=== PATIENT | female | born 1995 | race African-American/Black ===

== ENCOUNTER 2020-02-07 19:39 | Emergency (ER) | payer OTHER ==
[~2020-02-07] VITALS: Ht 162.6 cm; Wt 52.6 kg
[2020-02-07 20:00] VITALS: BP 102/68
--- NOTE | 2020-02-07 20:00 | NUR ---
to ED bed 07
--- NOTE | 2020-02-07 20:15 | NUR ---
Dr. Robin at bedside assessing pt.
--- NOTE | 2020-02-07 20:15 | NUR ---
DANIEL HODGE AT BEDSIDE FOR MEDICAL EVALUATION.
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
--- NOTE | 2020-02-07 20:20 | NUR ---
Antonette bernstein in ED - 02/07/20 at 3 by CHRISM ERMD AT BEDSIDE EVALUATING PT.
[2020-02-07] MEDS: ONDANSETRON 4 MG ODT PO ONE (21:08)
[2020-02-07] MEDS: HYDROcodone/APAP 5/325 MG 1 TAB TAB PO ONE (21:08)
[2020-02-07 21:24] VITALS: BP 102/68
--- NOTE | 2020-02-07 21:24 | NUR ---
Patient discharged with v/s stable. Written and verbal after care instructions given and explained. Patient alert, oriented and verbalized understanding of instructions. Ambulatory with steady gait. All questions addressed prior to discharge. ID band removed. Patient advised to follow up with PMD. Rx of VALIUM, NORCO, IBUPROFEN given. Patient educated on indication of medication including possible reaction and side effects. Opportunity to ask questions provided and answered.
== END 2020-02-07 21:24 | disposition home or self-care (01) ==
LOC: MED 19:39
DX: S39.012A Strain of muscle, fascia and tendon of lower back, initial encounter (principal); Z85.9 Personal history of malignant neoplasm, unspecified; X58.XXXA Exposure to other specified factors, initial encounter; Y93.89 Activity, other specified; Y92.89 Other specified places as the place of occurrence of the external cause; Y99.8 Other external cause status
CPT/HCPCS: 72040; 72100; 73060; 81002; 81025; 99284; Q0162

== ENCOUNTER 2020-03-24 08:47 | Emergency (ER) | payer OTHER ==
[~2020-03-24] VITALS: Ht 160 cm; Wt 49.4 kg
[2020-03-24 08:51] VITALS: BP 108/60
[2020-03-24 09:27] VITALS: BP 108/60
== END 2020-03-24 09:27 | disposition home or self-care (01) ==
LOC: MED 08:47
DX: N93.8 Other specified abnormal uterine and vaginal bleeding (principal); C95.90 Leukemia, unspecified not having achieved remission; D57.1 Sickle-cell disease without crisis; F12.90 Cannabis use, unspecified, uncomplicated; Z88.6 Allergy status to analgesic agent
CPT/HCPCS: 81002; 81025; 99283

== ENCOUNTER 2020-12-10 16:48 | Emergency (ER) | payer OTHER ==
[~2020-12-10] VITALS: Ht 160 cm; Wt 79.4 kg
[2020-12-10 17:13] VITALS: BP 150/80
--- NOTE | 2020-12-10 17:15 | NUR ---
PT WAITING IN TENT
--- NOTE | 2020-12-10 17:44 | NUR ---
COVID SWABS COLLECTED
[2020-12-10] MEDS ORDERED: PROM118S5 PO (18:21)
[2020-12-10] MEDS ORDERED: ACET-10509 PO (18:21)
--- NOTE | 2020-12-10 18:38 | NUR ---
COVID SYMPTOMS/EXPOSURE X 1 WEEK. SYMPTOMS BEGAN 2 DAYS AGO, PT EXPERIENCING COUGH/CHEST TIGHTNESS AND MILD SOB. PMH: LEUKEMIA
[2020-12-10 19:04] VITALS: BP 150/80
--- NOTE | 2020-12-10 19:05 | NUR ---
Patient discharged with v/s stable. Written and verbal after care instructions given and explained. Patient alert, oriented and verbalized understanding of instructions. Ambulatory with steady gait. All questions addressed prior to discharge. ID band removed. Patient advised to follow up with PMD. Rx of PROMETHAZINE AND TYLENOL given. Patient educated on indication of medication including possible reaction and side effects. Opportunity to ask questions provided and answered.
== END 2020-12-10 19:05 | disposition home or self-care (01) ==
LOC: MED 16:48
DX: J06.9 Acute upper respiratory infection, unspecified (principal); Z20.822 Contact with and (suspected) exposure to COVID-19; Z88.8 Allergy status to other drugs, medicaments and biological substances
CPT/HCPCS: 71045; 87426; 99284; U0003; 29515; 99283

== ENCOUNTER 2021-01-31 16:44 | Emergency (ER) | payer OTHER ==
[~2021-01-31] VITALS: Ht 160 cm; Wt 53.5 kg
[~2021-01-31 16:44] MED LIST: ACET-10509 PO; PROM118S5 PO
[2021-01-31 16:53] VITALS: BP 108/68
--- NOTE | 2021-01-31 17:12 | NUR ---
PT AMBULATED TO BED 9
--- NOTE | 2021-01-31 17:17 | NUR ---
25 Y FEMALE C/O RIGHT FLANK PAIN X 2 DAYS. PT STATED SHE WAS STRETCHING HER BACK AND THE NEXT DAY FELT THE PAIN. DENIES ANY TRAUMA TO HER BACK. PT STATED PAIN MAINLY OCCURS WHEN SHE IS MOVING HER BACK. UPON ASSESSMENT SKIN IS INTACT, MINOR BUMP FELT ON HER R FLANK. PMH: DENIES ALLERGIES: SEE CHART
[2021-01-31] MEDS ORDERED: KETOROLAC 15 MG/ML VIAL IM ONE (17:55)
--- NOTE | 2021-01-31 18:07 | NUR ---
UA COLLECTED BEDSIDE AND HANDED TO CAR PORTER
--- NOTE | 2021-01-31 18:18 | NUR ---
PT RETURNED TO BED [address] VIA W/C
[2021-01-31 18:32] LABS: APPEARANCE,URINE CLEAR (CLEAR); BILIRUBIN,URINE NEGATIVE (NEGATIVE); BLOOD, URINE 3+ (NEGATIVE); COLOR,URINE YELLOW (YELLOW); LEUKOCYTE ESTERASE ,URINE TRACE (NEGATIVE); NITRITE, URINE NEGATIVE (NEGATIVE); UGLUCOSE NEGATIVE (NEGATIVE)
--- NOTE | 2021-01-31 18:37 | NUR ---
PT IS CURRENTLY RESTING BEDSIDE WITH EYES CLOSED AND LIGHTS ON. BED IN LOWEST POSITION WITH SIDERAIL X1 UP. PT STATED PAIN RELIEF AND VITAL SIGNS STABLE. WILL CONTINUE TO MONITOR STATUS
[2021-01-31 18:58] LABS: RBC,URINE 20-50 /HPF (0-5); TRICHOMONAS,URINE Rare /HPF (None Seen); WBC,URINE 0-5 /HPF (0-5)
[2021-01-31] MEDS ORDERED: METR500T1 PO (19:05)
[2021-01-31 19:33] VITALS: BP 116/74
--- NOTE | 2021-01-31 19:33 | NUR ---
Patient discharged with v/s stable. Written and verbal after care instructions given and explained. Patient alert, oriented and verbalized understanding of instructions. Ambulatory with steady gait. All questions addressed prior to discharge. ID band removed. Patient advised to follow up with PMD. Rx of flagyl given. Patient educated on indication of medication including possible reaction and side effects. Opportunity to ask questions provided and answered.
== END 2021-01-31 19:33 | disposition home or self-care (01) ==
LOC: MED 16:44
DX: R10.9 Unspecified abdominal pain (principal); A59.9 Trichomoniasis, unspecified; F12.90 Cannabis use, unspecified, uncomplicated; Z79.899 Other long term (current) drug therapy; Z88.8 Allergy status to other drugs, medicaments and biological substances; Z85.6 Personal history of leukemia
CPT/HCPCS: 74176; 81001; 81025; 96372; 99284; J1885

== ENCOUNTER 2021-05-16 03:32 | Emergency (ER) | payer OTHER ==
[~2021-05-16 03:32] MED LIST changes: +METR500T1 PO
--- NOTE | 2021-05-16 03:38 | NUR ---
PATIENT LEFT WITHOUT BEING SEEN BY DR. CHOWDARY . NO FURTHER CARE PROVIDED FOR PATIENT.
== END 2021-05-16 03:38 | disposition left against medical advice (07) ==
LOC: MED 03:32
DX: M79.646 Pain in unspecified finger(s) (principal); Z53.21 Procedure and treatment not carried out due to patient leaving prior to being seen by health care provider

== ENCOUNTER 2021-06-07 12:09 | Emergency (ER) | payer OTHER ==
[~2021-06-07] VITALS: Ht 160 cm; Wt 52.2 kg
[2021-06-07 12:15] VITALS: BP 113/73
--- NOTE | 2021-06-07 12:20 | NUR ---
PT AMBULATED TO LOBBY
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
[2021-06-07] MEDS ORDERED: HYDROcodone/APAP 5/325 MG 1 TAB TAB PO ONE (12:35)
[2021-06-07] MEDS ORDERED: TRAM50TA1 PO (14:12)
[2021-06-07] MEDS ORDERED: HYDROcodone/APAP 5/325 MG 1 TAB TAB ONE (14:28)
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
== END 2021-06-07 14:54 | disposition home or self-care (01) ==
LOC: MED 12:09
DX: S00.83XA Contusion of other part of head, initial encounter (principal); Z88.8 Allergy status to other drugs, medicaments and biological substances; Z79.899 Other long term (current) drug therapy; W22.8XXA Striking against or struck by other objects, initial encounter; Y93.89 Activity, other specified; Y92.89 Other specified places as the place of occurrence of the external cause; Y99.8 Other external cause status
CPT/HCPCS: 70486; 99284

== ENCOUNTER 2022-03-01 12:04 | Emergency (ER) | payer OTHER ==
[~2022-03-01] VITALS: Ht 162.6 cm; Wt 51.3 kg
[~2022-03-01 12:04] MED LIST changes: +TRAM50TA1 PO
--- NOTE | 2022-03-01 12:10 | NUR ---
PT AMB TO ER BED 5
--- NOTE | 2022-03-01 12:11 | NUR ---
26 y/o female, c/o irritation on her upper right eyelid yesterday. from last night into this morning she has been having fluctuating swelling that is slightly resolving slightly worsening. denies using contact lenses or corrective lenses. pt states that her vision is otherwise unremarkable besides some minor discomfort. a&ox4, ambulates with steady gait. ermd made aware. pmh: remission of leukemia allergy: penicillins, salicylates med: benadryl (no relief)
[2022-03-01 12:22] VITALS: BP 133/59
[2022-03-01] MEDS ORDERED: predniSONE 20 MG TAB PO ONE (13:05)
[2022-03-01] MEDS ORDERED: TETRACAINE HCL/PF 0.5% OPTH 4 ML BTL OP ONE (13:05)
[2022-03-01] MEDS ORDERED: LORATADINE 10 MG TAB PO ONE (13:05)
[2022-03-01] MEDS ORDERED: FLUORESCEIN OPTH STRIP 1 MG OP ONE (13:05)
--- NOTE | 2022-03-01 13:42 | NUR ---
PT COULD NOT TOLERATE JUDE LENS IN LEFT EYE. PTS EYE WAS IRRIGATED INDIRECTLY VIA IV TUBING. PT HELD TUBING OVER EYE. 250ML BAG OF SALINE USED TO IRRIGATE.
[2022-03-01] MEDS ORDERED: PRED50TA2 PO (14:00)
[2022-03-01] MEDS ORDERED: DIPH25TA53 PO (14:00)
[2022-03-01] MEDS ORDERED: LORA10TA60 PO (14:00)
[2022-03-01 14:04] VITALS: BP 133/59
--- NOTE | 2022-03-01 14:13 | NUR ---
Patient discharged with v/s stable. Written and verbal after care instructions given and explained. Patient alert, oriented and verbalized understanding of instructions. Ambulatory with steady gait. All questions addressed prior to discharge. ID band removed. Patient advised to follow up with PMD. Rx of loratadine, benadryl, prednisone (sent) given. Patient educated on indication of medication including possible reaction and side effects. Opportunity to ask questions provided and answered. copy of work note given
== END 2022-03-01 14:13 | disposition home or self-care (01) ==
LOC: MED 12:04
DX: L23.9 Allergic contact dermatitis, unspecified cause (principal)
CPT/HCPCS: 99284; J7512; J7030

== ENCOUNTER 2022-03-03 09:47 | Emergency (ER) | payer OTHER ==
[~2022-03-03] VITALS: Ht 152.4 cm; Wt 52.2 kg
[~2022-03-03 09:47] MED LIST changes: +DIPH25TA53 PO; +LORA10TA60 PO; +PRED50TA2 PO
[2022-03-03 10:05] VITALS: BP 108/56
--- NOTE | 2022-03-03 10:08 | NUR ---
PT C/O LEFT EYE SWELLING HERE FOR RECHECK, TX FOR ALLERGIC REACTION AND STATES SWELLING HAS NOT IMPROVED. ALSO C/O REDNESS AND DRAINAGE TO LEFT EYE.
[2022-03-03] MEDS ORDERED: ERYT5OIN51 OP (11:55)
[2022-03-03 12:11] VITALS: BP 111/56
--- NOTE | 2022-03-03 12:12 | NUR ---
Patient discharged with v/s stable. Written and verbal after care instructions given and explained. Patient alert, oriented and verbalized understanding of instructions. Ambulatory with steady gait. All questions addressed prior to discharge. ID band removed. Patient advised to follow up with PMD. Rx of ERYTHROMYCIN given. Patient educated on indication of medication including possible reaction and side effects. Opportunity to ask questions provided and answered.
[2022-03-04] MEDS ORDERED: ERYT5OIN51 OP (10:51)
[2022-03-04] MEDS ORDERED: IBUP-1842 PO (10:52)
== END 2022-03-03 12:11 | disposition home or self-care (01) ==
LOC: MED 09:47
DX: H01.004 Unspecified blepharitis left upper eyelid (principal); Z79.899 Other long term (current) drug therapy; Z88.8 Allergy status to other drugs, medicaments and biological substances
CPT/HCPCS: 99283

== ENCOUNTER 2022-03-04 10:10 | Emergency (ER) | payer OTHER ==
[~2022-03-04] VITALS: Ht 162.6 cm; Wt 51.7 kg
[~2022-03-04 10:10] MED LIST changes: +ERYT5OIN51 OP
[2022-03-04 10:20] VITALS: BP 125/74
--- NOTE | 2022-03-04 10:24 | NUR ---
Pt ambulated to bed 12 with steady/even gait.
--- NOTE | 2022-03-04 10:40 | NUR ---
26 YO FEMALE PATIENT IN BED 12 COMPLAINING OF LEFT EYE PAIN 5/10, STATES THERE IS A WATERY DISCHARGE, FOLLOWING UP TO CONFIRM THAT INFECTION IS NOT GETTING WORSE PT HAS TAKEN ERYTHROMYCIN, BENDRYL, LORATADINE AND PREDNISONE [facility] ALLERGY TO PENICILLINS
--- NOTE | 2022-03-04 10:43 | NUR ---
PT DENIES BLURRY VISION OR PAIN OR DISCHARGE IN RIGHT EYE. PT STATES SHE PREFERS TO KEEP LEFT EYE CLOSED TO PREVENT THE EYE FROM WATERING MORE.
[2022-03-04] MEDS ORDERED: ERYT5OIN51 OP (10:51)
[2022-03-04] MEDS ORDERED: IBUP-1842 PO (10:52)
[2022-03-04 11:09] VITALS: BP 125/74
--- NOTE | 2022-03-04 11:10 | NUR ---
Patient discharged with v/s stable. Written and verbal after care instructions given and explained. Patient alert, oriented and verbalized understanding of instructions FOR EYE INFECTION. Ambulatory with to car. All questions addressed prior to discharge. ID band removed. Patient advised to follow up with PMD. Rx of ERYTHROMYCIN AND IBUPROFEN SENT. Patient educated on indication of medication including possible reaction and side effects. Opportunity to ask questions provided and answered.
== END 2022-03-04 11:10 | disposition home or self-care (01) ==
LOC: MED 10:10
DX: H01.004 Unspecified blepharitis left upper eyelid (principal); Z79.1 Long term (current) use of non-steroidal anti-inflammatories (NSAID); Z79.2 Long term (current) use of antibiotics; Z79.899 Other long term (current) drug therapy; Z88.0 Allergy status to penicillin; Z88.6 Allergy status to analgesic agent
CPT/HCPCS: 99282; 99283

== ENCOUNTER 2023-07-09 22:14 | Emergency (ER) | payer OTHER ==
[~2023-07-09] VITALS: Ht 162.6 cm; Wt 53.1 kg
[~2023-07-09 22:14] MED LIST changes: +IBUP-1842 PO; +TRAM-748 PO; -TRAM50TA1 PO
[2023-07-09 22:39] VITALS: BP 105/65; PULSE 78; RESP 18; TEMP 97.8; O2SAT 98
[2023-07-10] MEDS ORDERED: PHEN-1877 PO (00:06)
[2023-07-10] MEDS ORDERED: CIPR500T4 PO (00:06)
[2023-07-10] MEDS ORDERED: IBUP-2213 PO (00:06)
[2023-07-10 00:13] VITALS: BP 105/65; PULSE 78; RESP 18; TEMP 97.8; O2SAT 98
== END 2023-07-10 00:12 | disposition home or self-care (01) ==
LOC: MED 22:14
DX: N39.0 Urinary tract infection, site not specified (principal); F12.90 Cannabis use, unspecified, uncomplicated; Z79.899 Other long term (current) drug therapy; Z88.6 Allergy status to analgesic agent
CPT/HCPCS: 81002; 81025; 99283